=== PATIENT | female | born 1965 | race Caucasian/White ===

== ENCOUNTER 2020-12-18 13:24 | Inpatient (IN) | payer OTHER ==
[2020-12-18 15:57] VITALS: BMI 20.1
[2020-12-18] MEDS ORDERED: ONDANSETRON *ODT* 4 MG TABLET SL PRN (17:52)
[2020-12-18] MEDS ORDERED: MAGNESIUM CITRATE 300 ML BOTTLE PO PRN (17:52)
[2020-12-18] MEDS ORDERED: IBUPROFEN 400 MG TABLET (FP) PO PRN (17:52)
[2020-12-18] MEDS ORDERED: MAGNESIUM HYDROX 2400MG/30ML ORAL SUSPENSION 30 ML CUP PO PRN (17:52)
[2020-12-18] MEDS ORDERED: BISMUTH SUBSALICYLATE 524 MG/30 ML UD PO PRN (17:52)
[2020-12-18] MEDS ORDERED: MAG HYDROX/AL HYDROX/SIMETH 30 ML UNIT-DOSE CUP PO PRN (17:52)
[2020-12-18] MEDS ORDERED: NICOTINE POLACRILEX 2 MG GUM BUC PRN (17:52)
[2020-12-18] MEDS ORDERED: METHOCARBAMOL 500 MG TABLET PO PRN (17:52)
[2020-12-18] MEDS ORDERED: MENTHOL/PHENOL 1 EACH UD MM PRN (17:52)
[2020-12-18] MEDS ORDERED: cloNIDine HCL 0.1 MG TABLET PO PRN (17:52)
[2020-12-18] MEDS ORDERED: METHADONE HCL 10 MG TABLET (FOR DETOX USE ONLY) PO ONE (17:52)
[2020-12-18] MEDS ORDERED: ACETAMINOPHEN 325 MG TABLET (FP) PO PRN ×2 (17:52)
[2020-12-18] MEDS ORDERED: THIAMINE HCL 100 MG TABLET (FP) PO SCH (22:00)
[2020-12-18] MEDS ORDERED: MELATONIN 5 MG TABLETS PO SCH (22:00)
[2020-12-19] MEDS ORDERED: METHADONE HCL 10 MG TABLET (FOR DETOX USE ONLY) ONE (08:52)
[2020-12-19] MEDS ORDERED: METHADONE HCL 5 MG TABLET (FOR DETOX USE ONLY) ONE (08:53)
[2020-12-19] MEDS ORDERED: PRENATAL VITAMINS W/ FOLIC ACID TABLET (FP) PO SCH (10:00)
[2020-12-19] MEDS ORDERED: NICOTINE 21 MG/24 HOURS TOPICAL PATCH TD SCH (10:00)
[2020-12-19] MEDS ORDERED: METHADONE (DETOX) 20 MG, METHADONE (DETOX) 5 MG PO ONE (10:00)
[2020-12-19 10:55] LABS: HEMATOCRIT 40.5 % (32.4-45.2); HEMOGLOBIN 13.7 GM/dL (10.7-15.3); MCH 31.3 pg (25.7-33.7); MCHC 33.8 g/dl (32.0-36.0); MEAN CELL VOLUME 92.6 fl (80-96); MEAN PLT VOLUME 8.3 fl (7.5-11.1); PLATELET COUNT 295 K/MM3 (134-434); RBC 4.38 M/mm3 (3.60-5.2); RDW 14.4 % (11.6-15.6); WHITE BLOOD COUNT 6.7 K/mm3 (4.0-10.0)
[2020-12-19 10:58] LABS: POTASSIUM 3.9 mmol/L (3.5-5.1)
[2020-12-19 11:03] LABS: ALBUMIN 3.4 g/dl (3.4-5.0); CALCIUM 9.2 mg/dL (8.5-10.1)
[2020-12-19 11:04] LABS: BLOOD UREA NITROGEN 17.1 mg/dL (7-18)
[2020-12-19 11:07] LABS: CREATININE 0.5 mg/dL (0.55-1.3)
[2020-12-19 11:08] LABS: BILIRUBIN,TOTAL 0.5 mg/dL (0.2-1); TOT PROT 7.2 g/dl (6.4-8.2)
[2020-12-19] MEDS ORDERED: diazePAM 5 MG TABLET PO PRN (13:14)
[2020-12-19 15:03] VITALS: BP 128/92; PULSE 105; TEMP 97.7
[2020-12-20] MEDS ORDERED: METHADONE HCL 10 MG TABLET (FOR DETOX USE ONLY) PO ONE (10:00)
[2020-12-21] MEDS ORDERED: METHADONE (DETOX) 10 MG, METHADONE (DETOX) 5 MG PO ONE (10:00)
[2020-12-22] MEDS ORDERED: METHADONE HCL 10 MG TABLET (FOR DETOX USE ONLY) PO ONE (10:00)
[2020-12-23] MEDS ORDERED: METHADONE HCL 5 MG TABLET (FOR DETOX USE ONLY) PO ONE (06:00)
== END 2020-12-19 14:04 | disposition left against medical advice (07) | DRG 770 ==
LOC: YASAS 13:24 → Y3N 18:31
PROVIDERS: ADMIT Allergy & Immunology; ATTEND Allergy & Immunology
PROC: HZ2ZZZZ Detoxification Services for Substance Abuse Treatment (ICD-10-PCS; principal; 2020-12-18)
DX: F11.23 Opioid dependence with withdrawal (principal); F14.20 Cocaine dependence, uncomplicated; F13.10 Sedative, hypnotic or anxiolytic abuse, uncomplicated; F12.20 Cannabis dependence, uncomplicated; F17.210 Nicotine dependence, cigarettes, uncomplicated; F31.9 Bipolar disorder, unspecified; F41.9 Anxiety disorder, unspecified; R76.11 Nonspecific reaction to tuberculin skin test without active tuberculosis
CPT/HCPCS: 36415; 80053; 85027; 86780; 93005; 93010; C9803; U0003